=== PATIENT | male | born 2000 | race Caucasian/White ===

== ENCOUNTER 2025-05-22 22:24 | Emergency (ER) | payer OTHER, SELFPAY ==
[2025-05-22 22:25] VITALS: BP 129/85
[2025-05-22 22:29] VITALS: BMI 25.2
[2025-05-22] MEDS: NSS 1000 IV (23:40)
[2025-05-22 23:55] LABS: COVID-19 Antigen Negative (Negative); Hematocrit 41.9 % (39.0-52.0); Hemoglobin 14.2 g/dL (13.0-18.0); Mean Corp Hgb Conc. 33.9 g/dL (33.0-37.0); Mean Corpuscular Volume 90.5 fL (80.0-94.0); Platelet Count 258 10^3/uL (130-400); Red Cell Dist. Width 12.2 % (11.5-14.5)
--- NOTE | 2025-05-23 00:03 | ED.GENMED ---
History of Present Illness
General
Chief Complaint: Fever
Source: patient
Exam Limitations: none
Time Seen by Provider: 05/22/25 23:08
Nursing documentation reviewed up to this point in time: agreed with
History of Present Illness
History of Present Illness:
see MDM
Past History
Past History
ED Past Medical History: None
ED Past Surgical History: None
Social History
Tobacco: Non-smoker
Alcohol: Occasional
Drug: None
Personal: Single
Living: with family
Employment: Employed
Review of Systems
Review of Systems
Allergies reviewed?: Yes
All Other Systems: Not applicable
Phy Exam
Physical Exam
Physical Exam:
GENERAL: Alert , in no apparent distress, nontoxic, not drooling, tolerating secretions
EYE: pupils equal and reactive
NECK: Supple
ENT: b/l TM s clear, moderate to severe tonsillar hypertrophy approx 3+ with b/l exudates; no uvular swelling or deviation
phonation normal
CARDIAC: Regular rate and rhythm, no edema
LUNGS: Clear breath sounds bilaterally, no acute respiratory distress, no wheezes/rales/rhonchi, occ cough
ABDOMEN: Soft, without focal tenderness, no r/g, no cvat, normal bowel sounds
no appreciated splenomegaly
NEUROLOGICAL: Alert and oriented, no focal neuro deficits
SKIN: Warm and dry, skin intact.
MUSCULOSKELETAL: No edema, well perfused.
PSYCH: Normal and appropriate interaction.
Course
Orders/Labs/Results
Orders:
Orders
05/22/25 23:27
0.9% Sodium Chloride 1000 ml [Nss] 1,000 ml IV BOLUS
Dexamethasone Sod Phosphate [Decadron] 10 mg IV NOW STA
Ketorolac [Toradol] 30 mg IV NOW STA
05/22/25 23:38
COVID-19 Antigen Urgent
Source: Nasal Swab
Complete Blood Count/With Diff Urgent
Comprehensive Metabolic Panel Urgent
Lipase Urgent
05/22/25 23:41
Rapid Strep Group A Urgent
OBEY Source: Throat/Pharynx
Specimen Description:
Date Specimen was Collected: 05/22/25
Time Specimen was Collected: 23:39
Abnormal Lab Results
05/22/25
23:38
WBC 14.8 H 10^3/uL
(4.8-10.8)
RBC 4.63 L 10^6/uL
(4.70-6.10)
Glucose 107 H mg/dl
(70-99)
AST 154 H U/L
(17-59)
ALT 548 H* U/L
(0-50)
Alkaline Phosphatase 229 H U/L
(38-126)
05/22/25 23:38
05/22/25 23:38
Vital Signs
Initial and Last Documented VS:
Initial Vital Signs
Temp Pulse Resp BP Pulse Ox
37.5 C 93 20 129/85 96
05/22/25 22:25 05/22/25 22:25 05/22/25 22:25 05/22/25 22:25 05/22/25 22:25
Last Documented Vital Signs
Temp Pulse Resp BP Pulse Ox
37.3 C 65 20 111/67 97
05/23/25 01:20 05/23/25 01:20 05/23/25 01:20 05/23/25 01:20 05/23/25 01:20
MDM/Problems Addressed
Differential Diagnosis Includes:
see MDM
MDM/Problems Addressed:
Note:
CHIEF COMPLAINT(S)
Severe sore throat and dysphagia (difficulty swallowing)
HISTORY OF PRESENT ILLNESS
The patient is a 24-year-old male with a recent diagnosis of infectious mononucleosis, presenting with severe sore throat and difficulty swallowing. He reports being diagnosed with mononucleosis five days ago at an urgent care facility following two
weeks of illness onset characterized by nocturnal fevers, generalized weakness, and body aches. Initially, the patient experienced daily fevers during the first week, which subsided for two days before recurrent episodes. He acknowledged a recent
fever of 101�F last yesterday. Alongside systemic symptoms, the patient reports significant swelling in the lymph nodes and difficulty swallowing fluids or solids. An initial laboratory evaluation at urgent care revealed elevated liver enzymes, with
aspartate aminotransferase (AST) at 532 units/L and alanine aminotransferase (ALT) at a similar level. His immunoglobulin M (IgM) and immunoglobulin G (IgG) tests were positive, confirming acute Arti-Coreas virus infection. Furthermore, the patient
describes new onset snoring due to significant tonsillar swelling but denies any abdominal pain. He has no prior history of infectious mononucleosis.
The patient has consulted another emergency room but received minimal intervention after a prolonged wait. During this visit, he was instructed to follow-up with primary care and was not provided with corticosteroid therapy, despite significant
symptom severity.
PAST MEDICAL AND SURIGICAL HISTORY
None reported.
SOCIAL DETERMINANTS AFFECTING HEALTH
The patient resides in [place] and is noted to have waited seven hours previously at another emergency department before being advised to visit a primary care provider. Support from his restoration community was indicated as part of his care-seeking
behavior.
MEDICATIONS
The patient self-manages symptoms with [id number]-ohenoki ibuprofen, taking 200 milligrams at a time, but has not been using the optimal therapeutic dosage. He also received guidance on careful acetaminophen use due to liver concerns.
REVIEW OF SYSTEMS
- General: Fevers, weakness, body aches.
- Ear, Nose, and Throat: Severe sore throat, dysphagia, new onset snoring due to tonsillar hypertrophy.
- Gastrointestinal: No abdominal pain reported.
PHYSICAL EXAM
Nursing notes reviewed and vital signs reviewed.
- Ear, Nose, and Throat: Significant tonsillar hypertrophy observed on examination.
PLAN
1. Administer intravenous Toradol (ketorolac) and a dose of corticosteroids to reduce inflammation and pain.
2. Conduct throat swabs to rule out concurrent bacterial infections such as streptococcal pharyngitis.
3. Perform additional blood work to evaluate current hepatic function.
4. Test for COVID-19 and other possible infectious causes.
DIFFERENTIAL DIAGNOSIS
The Differential Diagnosis includes, in no particular order and is not limited to:
1. Infectious mononucleosis
2. Streptococcal pharyngitis
3. Viral pharyngitis
4. Acute tonsillitis
5. Acute bacterial tonsillitis
6. Peritonsillar abscess
7. Arti-Coreas virus hepatitis
8. Cervical lymphadenopathy
9. SARS-CoV-2 infection
10. Acute viral syndrome
24-year-old male who says he is on 13 or 14 days of URI symptoms with sore throat, headache, fatigue, body aches, fever initially which seemed to get better for a few days and then returned, his last fever was yesterday 101. Patient had gone to
urgent care about 5 days ago and tested positive for mono, he had positive IgG and IgM for EBV, he also had a transaminitis but a normal white count. Patient says in the last 2 days he is now having more swelling of his lymph nodes's, specifically
his posterior cervical chain both sides of his neck and feeling a little increased sore throat and painful swallowing. He is only been taking ibuprofen because he is avoiding Tylenol due to his liver dysfunction. His ibuprofen dose though is only
200 mg. He did not take anything recently for pain. He has not been prescribed steroids for this.
On exam he has moderate to severe tonsillar hypertrophy with exudate but a normal midline uvula and no edema to his uvula with a normal phonation and normal secretions. He does have bilateral lymphadenopathy in the posterior cervical chain
specifically, proximal posterior cervical chain and tonsillar glands are swollen and mildly tender, slightly larger than 2 cm
He has no supraclavicular or infraclavicular lymphadenopathy. He has no abdominal tenderness or appreciated splenomegaly.
I screened him for other reasons for new fever however he is afebrile here so that is reassuring and hasn't had meds for fever in hours, his strep was negative, COVID-negative. He does have a mild leukocytosis of 14 which is to be expected on week
3 of mono. His transaminases are actually a tiny bit improved, with the AST having been to 82 and the ALT being 532 when his labs were drawn 5 days ago, his ALT today is 548 and AST is slightly better 154; alk phos no worse; t bili normal
05/23/25 - 01:21
Patient has been experiencing symptoms consistent with infectious mononucleosis, including elevated white blood cell count and liver markers. Current white blood cell count is 14, up from 9.6. Liver markers show some improvement; AST decreased from
over 200 to approximately 150, and alkaline phosphatase levels are also improved. The patient is being started on a five-day course of steroids to address swelling, lymphadenopathy in the neck, and associated pain. Ibuprofen is recommended for
symptomatic relief. The patient should monitor for new symptoms such as asymmetric gland swelling, abdominal pain, or vomiting and seek evaluation if these occur. Fever and sore throat are expected to improve; however, post-viral fatigue may
persist. A prescription will be sent to the patients pharmacy in [place]. Advising increased hydration and noting that antibodies are present, indicating the body is actively fighting the virus. Monitoring and potential follow-up with primary
care are recommended in a couple of weeks to ensure continued improvement of liver function tests. Patient declined a work note at this time.
*Pulse Oximetry
SaO2: 98
Oxygen Mode of Delivery: Room air
Patient hypoxic: no (97)
*Critical Care Note
Total Time (30-74mins, 75-104mins- exclusive of procedures): Not Applicable
ED Attending Note
-
Portions of this chart may have been created with voice recognition software.� Occasional wrong word or��sound alike� substitutions may have occurred due to the inherent limitations of voice recognition software.
Discharge Plan
Departure
Patient Disposition: Home (Routine Discharge)
Date of Disposition: 05/23/25
Time of Disposition: 01:21
Patient with high blood pressure during this ER visit?: No
Condition: Fair
Covid-19: Negative COVID-19
Discharge Problem:
Mononucleosis
Instructions: Mononucleosis
Prescriptions:
New
prednisone 50 mg tablet
50 mg PO DAILY Qty: 5 0RF
Referrals:
Mary Guzman MD [Family Provider, Cardiology]
Activity Restrictions/Additional Instructions:
YOUR BLOOD WORK IS NOT SIGNIFICANTLY WORSE, YOUR LIVER MARKERS ARE ABOUT THE SAME IF NOT A LITTLE BETTER
YOUR PAIN/SWELLING IN YOUR GLANDS IS FROM THE VIRUS AND WILL GET BETTER
TRY PREDNISONE ONCE A DAY FOR 5 DAYS STARTING LATER TODAY (TUESDAY)
MOTRIN 600 MG EVERY 8 HOURS WITH FOOD NEEDED FOR PAIN
YOUR FEVER SHOULD RESOLVE
IF YOU ARE STILL HAVING FEVERS, PLEASE SEE YOUR DOCTOR OR RETURN
ALSO RETURN: RASH, TROUBLE BREATHING, TROUBLE SWALLOWING, VOMITING,A BDOMINAL PAIN ETC
Interventions
Interventions:
*Risk Screen - Suicide Last Done: 05/22/25 22:25
*General Assessment Last Done: 05/22/25 22:25
*Neglect/Abuse Screening Last Done: 05/22/25 22:25
*ED COVID-19 Vaccine History Last Done: 05/22/25 22:29
ED- Neurological Assessment Last Done: 05/22/25 22:53
ED-Skin Assessment Last Done: 05/22/25 22:53
Discharge Date and Time
Print Language: INDONESIAN
[2025-05-23 00:19] LABS: ALT (SGPT) 548 U/L (0-50); AST (SGOT) 154 U/L (17-59); Albumin 4.4 g/dl (3.5-5.0); Alkaline Phosphatase 229 U/L (38-126); Blood Urea Nitrogen 15 mg/dl (9-20); Calcium 9.9 mg/dl (8.4-10.2); Carbon Dioxide 25 mmol/L (22-30); Chloride 100 mmol/L (98-107); Estimated Creatinine Clearance 96 ml/min; Glucose 107 mg/dl (70-99); Lipase 104 U/L (23-300); Potassium 4.4 mmol/L (3.5-5.1); Sodium 135 mmol/L (135-145); Total Protein 8.2 g/dl (6.3-8.2); eGFR > 60.00
[2025-05-23] MEDS: TORADOL 30 MG IV (00:23)
[2025-05-23] MEDS: DECADRON 10 MG IV (00:23)
[2025-05-23 00:31] VITALS: BP 105/67
[2025-05-23 01:20] VITALS: BP 111/67
[2025-05-23 03:49] LABS: Absolute Neutrophils -Man Diff 5.0 10^3/uL (1.4-6.5)
[2025-05-23 03:50] LABS: Normal RBC Morphology Yes; Platelets Checked Yes; Total Cells Counted 100
== END 2025-05-23 01:32 | disposition home or self-care (01) ==
LOC: EMR 22:24
PROVIDERS: Physician Assistant; EMERGENCY PHYSICIAN Emergency Medicine; FAMILY PHYSICIAN Internal Medicine Cardiovascular Disease
DX: B27.90 Infectious mononucleosis, unspecified without complication (principal); Z11.52 Encounter for screening for COVID-19
CPT/HCPCS: 99283; 96374; 96375; 80053; 83690; 85025; 87070; 87811; 87880